=== PATIENT | female | born 1960 | race Caucasian/White ===

== ENCOUNTER → 2016-09-28 | Outpatient (CLI) | payer BC ==
--- NOTE | 2016-09-28 13:40 | REPMRS ---
Patient History The patient states she had a clinical breast exam in 09/07 Patient is postmenopausal. Family history of breast cancer in mother at age 55, breast cancer in maternal grandmother at age 65, and colorectal cancer in maternal cousin at age 50. Benign excisional biopsy of the right breast, 2003. Took hormonal contraceptives for 5 years. Digital Woman Screen Mammo: September 28, 2016 - Exam #: [id number] Bilateral CC and MLO view(s) were taken. Technologist: Wen Adhikari, Technologist Prior study comparison: August 22, 2015, digital woman screen mammo performed at [facility]. August 19, 2014, digital woman screen mammo performed at [facility]. FINDINGS: There are scattered fibroglandular densities. There has been no change in the appearance of the mammogram from the prior studies. There is a mild amount of residual fibroglandular tissue which is fairly symmetric. There is no interval development of dominant mass, architectural distortion, or clustered microcalcification suggestive of malignancy. ASSESSMENT: BI-RADS/ACR category 1 mammogram. Negative. Recommendation Routine screening mammogram in 1 year (for women over age 40). This mammogram was interpreted with the aid of an FDA-approved computer-aided dectection system. Electronically Signed By: Melquiades Grey MD 09/28/16 0019
== END ==
LOC: M WHC 12:51
PROVIDERS: ATTEND Nurse Practitioner Women's Health
DX: Z12.31 Encounter for screening mammogram for malignant neoplasm of breast (principal)

== ENCOUNTER → 2016-12-27 | Outpatient (REF) | payer BC ==
[2016-12-27 20:14] LABS: PERCENT SATURATION 26.6 % (13.2-37.4)
== END ==
LOC: M LAB REF 16:29
PROVIDERS: ATTEND Internal Medicine
DX: D64.9 Anemia, unspecified (principal)

== ENCOUNTER → 2017-08-05 | Outpatient (REF) | payer BC ==
[2017-08-05 15:52] LABS: CREATININE FOR GFR 0.67 MG/DL (0.55-1.02); GLOMERULAR FILTRATION RATE > 60.0 (>51)
[2017-08-05 15:52] LABS: BLOOD UREA NITROGEN 18 MG/DL (7-18)
== END ==
LOC: M LABDRAW1 15:23
DX: Z01.812 Encounter for preprocedural laboratory examination (principal)
CPT/HCPCS: 82565

== ENCOUNTER → 2017-10-14 | Outpatient (CLI) | payer BC | LOC: M WHC 09:02 | DX: Z12.31 Encounter for screening mammogram for malignant neoplasm of breast (principal); Z78.0 Asymptomatic menopausal state; Z80.3 Family history of malignant neoplasm of breast; Z80.0 Family history of malignant neoplasm of digestive organs; Z79.3 Long term (current) use of hormonal contraceptives | CPT/HCPCS: 77067 ==

== ENCOUNTER → 2018-03-06 | Outpatient (REF) | payer BC ==
[2018-03-06 18:52] LABS: FERRITIN 206 NG/ML (8-252); IRON (FE) 80 UG/DL (50-170); PERCENT SATURATION 27.3 % (13.2-45.0); TOTAL IRON BINDING CAPACITY 293 UG/DL (250-450)
[2018-03-06 18:57] LABS: VITAMIN B12 LEVEL 480 PG/ML (247-911)
== END ==
LOC: M LAB REF 17:43
DX: D64.9 Anemia, unspecified (principal)
CPT/HCPCS: 83550

== ENCOUNTER → 2018-10-15 | Outpatient (CLI) | payer BC ==
--- NOTE | 2018-10-15 11:34 | REPMRS ---
Patient History The patient states she had a clinical breast exam in 08/2018. Family history of breast cancer at age 65 in maternal grandmother, breast cancer at age 55 in mother, colorectal cancer at age 50 in maternal cousin. Benign excisional biopsy of the right breast, 2004. Took hormonal contraceptives for 5 years. 3D TOMOSYNTHESIS WAS PERFORMED. Digital Woman Screen Mammo: October 15, 2018 - Exam #: [id number] Bilateral CC and MLO view(s) were taken. Technologist: Wen Adhikari, Technologist Prior study comparison: October 14, 2017, digital woman screen mammo performed at [facility]. September 28, 2016, digital woman screen mammo performed at [facility]. FINDINGS: There are scattered fibroglandular densities. There has been no change in the appearance of the mammogram from the prior studies. There is a mild amount of residual fibroglandular tissue which is fairly symmetric. There is no interval development of dominant mass, architectural distortion, or clustered microcalcification suggestive of malignancy. Assessment: BI-RADS/ACR category 1 mammogram. Negative Mammogram. Recommendation Routine screening mammogram in 1 year (for women over age 40). This mammogram was interpreted with the aid of an FDA-approved computer-aided dectection system. Electronically Signed By: Melquiades Grey MD 10/15/18 [id number]
== END ==
LOC: M WHC 08:32
PROVIDERS: ATTEND Obstetrics & Gynecology
DX: Z12.31 Encounter for screening mammogram for malignant neoplasm of breast (principal); Z80.3 Family history of malignant neoplasm of breast; Z80.0 Family history of malignant neoplasm of digestive organs

== ENCOUNTER 2018-10-25 07:54 | Emergency (ER) | payer BC ==
[~2018-10-25] VITALS: Ht 157.5 cm; Wt 61.4 kg
[2018-10-25] MEDS ORDERED: TRAZ-163 (08:10)
[2018-10-25] MEDS ORDERED: BUPR150T3 (08:10)
[2018-10-25] MEDS ORDERED: LISI10TA4 (08:10)
--- NOTE | 2018-10-25 08:41 | REP ---
Clinical: Pain and swelling. Technique: AP, lateral, bilateral oblique views of the left hand. Findings: Advanced arthritic degenerative changes involving the first carpometacarpal joint space including chronic subluxation, surrounding chondrocalcinosis, subchondral sclerosis and joint space narrowing. Moderate osteoarthritic degenerative changes noted throughout the remainder of the hand with subchondral sclerosis and joint space narrowing at the interphalangeal joints and diffuse osteopenia. No acute fracture dislocation. Impression: Advanced osteoarthritic degenerative changes at the first carpometacarpal joint Moderate degenerative changes throughout the remainder of the left hand. Electronically Signed by Amarjit Miranda MD 10/25/2018 08:32 A
[2018-10-25] MEDS ORDERED: MOBI4TAB PO (09:11)
[2018-10-25 09:22] VITALS: BP 121/76
== END 2018-10-25 09:35 | disposition home or self-care (01) ==
LOC: M ED 07:54
DX: M19.042 Primary osteoarthritis, left hand (principal); I10 Essential (primary) hypertension; F32.9 Major depressive disorder, single episode, unspecified

== ENCOUNTER → 2019-04-29 | Outpatient (REF) | payer BC ==
[~2019-04-29] MED LIST: BUPR150T3; LISI10TA4; MOBI4TAB PO; TRAZ-163
[2019-04-29 13:04] LABS: BLOOD UREA NITROGEN 15 MG/DL (7-18); CREATININE FOR GFR 0.68 MG/DL (0.55-1.30); GLOMERULAR FILTRATION RATE > 60.0 (>45)
== END ==
LOC: M LABDRAW1 12:32
PROVIDERS: ATTEND Neurological Surgery
DX: N18.9 Chronic kidney disease, unspecified (principal)

== ENCOUNTER → 2019-12-28 | Outpatient (CLI) | payer BC ==
[~2019-12-28] MED LIST changes: -TRAZ-163; +TRAZ-257
--- NOTE | 2019-12-28 12:27 | REPMRS ---
Patient History The patient states she had a clinical breast exam in 2019. Family history of breast cancer at age 65 in maternal grandmother, breast cancer at age 55 in mother, colorectal cancer at age 50 in maternal cousin. Benign excisional biopsy of the right breast, 2004. Took hormonal contraceptives for 5 years. 3D TOMOSYNTHESIS WAS PERFORMED. The [facility] lifetime risk for breast cancer is 17.1%. VOLPARA DENSITY B. Digital Woman Screen Mammo: December 28, 2019 - Exam #: [id number] Bilateral CC and MLO view(s) were taken. Technologist: Dawn Baker, Technologist Prior study comparison: October 15, 2018, bilateral digital woman screen mammo performed at [facility]. October 14, 2017, digital woman screen mammo performed at [facility]. FINDINGS: There are scattered fibroglandular densities. There has been no change in the appearance of the mammogram from the prior studies. There is a mild amount of residual fibroglandular tissue which is fairly symmetric. There is no interval development of dominant mass, architectural distortion, or clustered microcalcification suggestive of malignancy. Assessment: BI-RADS/ACR category 1 mammogram. Negative Mammogram. Recommendation Routine screening mammogram in 1 year (for women over age 40). This mammogram was interpreted with the aid of an FDA-approved computer-aided dectection system. Electronically Signed By: Melquiades Grey MD 12/28/19 [id number]
== END ==
LOC: M WHC 10:56
PROVIDERS: ATTEND Nurse Practitioner Women's Health
DX: Z12.31 Encounter for screening mammogram for malignant neoplasm of breast (principal); Z80.3 Family history of malignant neoplasm of breast; Z80.0 Family history of malignant neoplasm of digestive organs

== ENCOUNTER → 2020-09-27 | Outpatient (CLI) | payer BC ==
[~2020-09-27] MED LIST changes: +BUPR150T12; -BUPR150T3; +LISI10TA22; -LISI10TA4
[2020-09-27 20:28] LABS: BLOOD UREA NITROGEN 15 MG/DL (7-18); CREATININE FOR GFR 0.78 MG/DL (0.55-1.30); GLOMERULAR FILTRATION RATE > 60.0 (>45)
== END ==
LOC: M WUC 15:32
PROVIDERS: ATTEND Registered Nurse
DX: D43.9 Neoplasm of uncertain behavior of central nervous system, unspecified (principal)

== ENCOUNTER → 2021-02-16 | Outpatient (CLI) | payer BC ==
--- NOTE | 2021-02-16 09:26 | REPMRS ---
Patient History The patient states she had a clinical breast exam in Mar 2020. Family history of breast cancer at age 65 in maternal grandmother, breast cancer at age 55 in mother, colorectal cancer at age 50 in maternal cousin. Benign excisional biopsy of the right breast, 2004. Took hormonal contraceptives for 5 years. Patient states no breast complaints today. Patient has signed MRS History Sheet. Digital Woman Screen Mammo: February 16, 2021 - Exam #: [id number] Bilateral CC and MLO view(s) were taken. Technologist: Wen Adhikari, Technologist Prior study comparison: December 28, 2019, bilateral digital woman screen mammo performed at [facility]. October 15, 2018, bilateral digital woman screen mammo performed at [facility]. FINDINGS: There are scattered fibroglandular densities. Screening. Digital screening (2D) mammography was performed bilaterally in the CC and MLO projections. Additionally, breast tomosynthesis (3D mammography) was performed bilaterally in the CC and MLO projections. Todays exam was compared to the prior exam/exams. By history, the patient has no complaints of a palpable breast abnormality or other significant breast complaints. The breasts are unchanged in size and shape. There are no michael-soft tissue densities or spiculated masses. There is no internal architectural distortion. There are no suspicious michael-calcific clusters. Skin thickening or nipple retraction is not present. IMPRESSION: BI-RADS Category 1-negative. There is no evidence of malignant alteration of the breasts. Followup examination recommended in one year. The Volpara volumetric breast density category is B, there are scattered areas of fibroglandular densities. This mammogram was read [facility],an FDA approved computer aided detection system for mammography. The lifetime Tyrer-Cuzick score is 16.6 % Negative x-ray reports should not delay surgical consultation if a dominant or clinically suspicious mass is present. Not all breast cancers can be identified by mammography. Therefore, we recommend that you continue to perform regular breast self-examination and physical examination and then promptly contact your physician of any concerns or changes. Adenosis and dense breasts may obscure an underlying neoplasm. Assessment: BI-RADS/ACR category 1 mammogram. Negative Mammogram. Recommendation Routine screening mammogram of both breasts in 1 year. Electronically Signed By: Reji Cano, 02/16/21 0961
== END ==
LOC: M WHC 08:22
PROVIDERS: ATTEND Obstetrics & Gynecology
DX: Z12.31 Encounter for screening mammogram for malignant neoplasm of breast (principal); Z85.3 Personal history of malignant neoplasm of breast; Z92.0 Personal history of contraception; Z98.890 Other specified postprocedural states

== ENCOUNTER → 2022-03-27 | Outpatient (CLI) | payer BC | LOC: M WHC 08:36 | PROVIDERS: ATTEND Obstetrics & Gynecology | DX: Z12.31 Encounter for screening mammogram for malignant neoplasm of breast (principal); Z80.3 Family history of malignant neoplasm of breast ==

== ENCOUNTER → 2022-04-10 | Outpatient (CLI) | payer BC | LOC: M WUC 11:38 | PROVIDERS: ATTEND Internal Medicine | DX: M50.322 Other cervical disc degeneration at C5-C6 level (principal) ==

== ENCOUNTER → 2022-11-12 | Outpatient (CLI) | payer BC ==
[~2022-11-12] MED LIST changes: +OXYC30TA PO; +TRAM50TA2 PO
[2022-11-12 17:44] LABS: C REACTIVE PROTEIN QUANTITATIV < 0.40 MG/DL (<1.0)
[2022-11-13 16:49] LABS: IRON (FE) 73 UG/DL (50-170); PERCENT SATURATION 24.8 % (13.2-45.0); TOTAL IRON BINDING CAPACITY 294 UG/DL (250-425)
[2022-11-13 16:52] LABS: FERRITIN 124.3 NG/ML (7.3-270.7); VITAMIN B12 LEVEL 1225 PG/ML (211-911)
== END ==
LOC: M WUC 15:39
PROVIDERS: ATTEND Internal Medicine
DX: S13.8XXA Sprain of joints and ligaments of other parts of neck, initial encounter (principal); X58.XXXA Exposure to other specified factors, initial encounter; Y92.89 Other specified places as the place of occurrence of the external cause; Y93.89 Activity, other specified; Y99.8 Other external cause status

== ENCOUNTER → 2022-11-22 | Outpatient (CLI) | payer BC ==
[~2022-11-22] MED LIST changes: +ISOVUE-370 76% 100ML VIAL As Ordered ONE
== END ==
LOC: M RAD 14:18
PROVIDERS: ATTEND Internal Medicine
DX: R59.0 Localized enlarged lymph nodes (principal)
CPT/HCPCS: 70491; Q9967

== ENCOUNTER → 2022-11-23 | Outpatient (CLI) | payer BC ==
[~2022-11-23] MED LIST changes: -ISOVUE-370 76% 100ML VIAL As Ordered ONE
== END ==
LOC: M WUC 09:24
PROVIDERS: ATTEND Internal Medicine
DX: M51.36 Other intervertebral disc degeneration, lumbar region (principal); M51.37 Other intervertebral disc degeneration, lumbosacral region; M54.50 Low back pain, unspecified; R53.83 Other fatigue

== ENCOUNTER → 2022-12-06 | Outpatient (CLI) | payer BC | LOC: M RAD 13:31 | PROVIDERS: ATTEND Internal Medicine | DX: N28.1 Cyst of kidney, acquired (principal); R10.823 Right lower quadrant rebound abdominal tenderness ==

== ENCOUNTER → 2022-12-12 | Outpatient (CLI) | payer BC | LOC: M RAD 11:10 | PROVIDERS: ATTEND Internal Medicine | DX: R10.2 Pelvic and perineal pain (principal) ==

== ENCOUNTER → 2023-04-04 | Outpatient (CLI) | payer BC | LOC: M WHC 13:24 | PROVIDERS: ATTEND Internal Medicine | DX: Z12.31 Encounter for screening mammogram for malignant neoplasm of breast (principal) ==

== ENCOUNTER → 2023-04-24 | Outpatient (CLI) | payer OTHER, BC | LOC: M PLAIMG 08:57 | PROVIDERS: ATTEND Internal Medicine | DX: S06.0X1A Concussion with loss of consciousness of 30 minutes or less, initial encounter (principal); R51.9 Headache, unspecified; V28.49XA Other motorcycle driver injured in noncollision transport accident in traffic accident, initial encounter; Y92.9 Unspecified place or not applicable; Y99.9 Unspecified external cause status; Y93.9 Activity, unspecified ==

== ENCOUNTER → 2023-05-31 | Outpatient (REF) | payer BC, OTHER ==
[2023-05-31 17:23] LABS: BASO # 0.1 10^3/uL (0.0-0.2); BASO % 0.8 % (0.0-1.0); EOS # 0.2 10^3/uL (0.0-0.5); EOS % 2.2 % (0.0-3.0); HEMOGLOBIN 12.6 g/dl (12.0-15.5); LYMPH # 2.4 10^3/uL (1.5-5.0); LYMPH % 33.3 % (24.0-44.0); MEAN CORPUSCULAR HEMOGLOBIN 28.9 pg (27.0-33.0); MEAN CORPUSCULAR HGB CONC 32.3 g/dl (32.0-36.5); MEAN CORPUSCULAR VOLUME 89.4 fl (80.0-96.0); MONO # 0.6 10^3/uL (0.0-0.8); MONO % 7.5 % (2.0-8.0); NEUTROPHILS # 4.1 10^3/uL (1.5-8.5); NEUTROPHILS % 56.1 % (36.0-66.0); PLATELET COUNT, AUTOMATED 326 10^3/uL (150-450); RED BLOOD COUNT 4.36 10^6/uL (4.00-5.40); WHITE BLOOD COUNT 7.3 10^3/uL (4.0-10.0)
[2023-05-31 17:37] LABS: ALBUMIN 4.1 G/DL (3.2-5.2); ALKALINE PHOSPHATASE 69 U/L (46-116); ALT/SGPT 19 U/L (7.0-40); AST/SGOT 12 U/L (<34); BILIRUBIN,TOTAL 0.2 MG/DL (0.3-1.2); BLOOD UREA NITROGEN 12 MG/DL (9-23); CALCIUM LEVEL 9.2 MG/DL (8.3-10.6); CARBON DIOXIDE LEVEL 28 MMOL/L (20-31); CHLORIDE LEVEL 103 MMOL/L (98-107); CHOLESTEROL LEVEL 215 MG/DL (<200); CHOLESTEROL RISK RATIO 2.88 (<5); CREATININE FOR GFR 0.75 MG/DL (0.55-1.30); GLOMERULAR FILTRATION RATE > 60.0 (>45); GLUCOSE, FASTING 89 MG/DL (74-106); HDL CHOLESTEROL 74.4 MG/DL (>40); LDL CHOLESTEROL 126.2 MG/DL (<100); NON-HDL-C 140.6 MG/DL; POTASSIUM SERUM 4.7 MMOL/L (3.5-5.1); SODIUM LEVEL 140 MMOL/L (136-145); THYROID STIMULATING HORMONE 2.625 uIU/ML (0.55-4.78); TOTAL PROTEIN 6.8 G/DL (5.7-8.2); TRIGLYCERIDES LEVEL 72 MG/DL (<150)
== END ==
LOC: M LAB REF 16:23
PROVIDERS: ATTEND Internal Medicine
DX: Z00.00 Encounter for general adult medical examination without abnormal findings (principal); E78.5 Hyperlipidemia, unspecified; I10 Essential (primary) hypertension; R59.0 Localized enlarged lymph nodes

== ENCOUNTER → 2023-07-01 | Outpatient (REF) | payer BC, OTHER | LOC: M SFHCWAGY 14:09 | PROVIDERS: ATTEND Nurse Practitioner Family | DX: Z12.4 Encounter for screening for malignant neoplasm of cervix (principal); R87.615 Unsatisfactory cytologic smear of cervix ==

== ENCOUNTER → 2023-07-29 | Outpatient (REF) | payer BC, OTHER | LOC: M SFHCWAGY 15:28 | PROVIDERS: ATTEND Nurse Practitioner Family | DX: Z12.4 Encounter for screening for malignant neoplasm of cervix (principal); N95.2 Postmenopausal atrophic vaginitis ==

== ENCOUNTER 2023-11-07 08:12 | Emergency (ER) | payer BC, OTHER ==
[~2023-11-07] VITALS: Ht 157.5 cm; Wt 80.4 kg
[~2023-11-07 08:12] MED LIST changes: -LISI10TA22; +LISI10TA22 PO
[2023-11-07] MEDS ORDERED: BUPR15TA PO (08:20)
[2023-11-07] MEDS ORDERED: CHOL1CAP10 PO (08:20)
[2023-11-07] MEDS ORDERED: TRAZ-257 PO (08:20)
[2023-11-07] MEDS ORDERED: ECOT81TA5 PO (08:20)
[2023-11-07] MEDS ORDERED: CALC500C16 PO (08:20)
[2023-11-07 10:21] LABS: BASO # 0.1 10^3/uL (0.0-0.2); BASO % 0.9 % (0.0-1.0); EOS # 0.2 10^3/uL (0.0-0.5); EOS % 2.3 % (0.0-3.0); HEMOGLOBIN 12.3 g/dl (12.0-15.5); LYMPH # 1.9 10^3/uL (1.5-5.0); MEAN CORPUSCULAR HGB CONC 33.2 g/dl (32.0-36.5); MEAN CORPUSCULAR VOLUME 87.3 fl (80.0-96.0); MONO # 0.7 10^3/uL (0.0-0.8); MONO % 8.4 % (2.0-8.0); NEUTROPHILS # 4.9 10^3/uL (1.5-8.5); NEUTROPHILS % 63.1 % (36.0-66.0); PLATELET COUNT, AUTOMATED 298 10^3/uL (150-450); RED BLOOD COUNT 4.24 10^6/uL (4.00-5.40); WHITE BLOOD COUNT 7.8 10^3/uL (4.0-10.0)
[2023-11-07 10:50] LABS: LIPASE 46 U/L (12-53)
[2023-11-07 10:52] LABS: ALBUMIN 3.4 G/DL (3.2-5.2); ALKALINE PHOSPHATASE 62 U/L (46-116); ALT/SGPT 21 U/L (7.0-40); AST/SGOT 24 U/L (<34); BILIRUBIN,TOTAL 0.3 MG/DL (0.3-1.2); BLOOD UREA NITROGEN 12 MG/DL (9-23); CARBON DIOXIDE LEVEL 26 MMOL/L (20-31); CHLORIDE LEVEL 108 MMOL/L (98-107); GLOMERULAR FILTRATION RATE > 60.0 (>45); GLUCOSE, FASTING 101 MG/DL (74-106); POTASSIUM SERUM 4.7 MMOL/L (3.5-5.1); SODIUM LEVEL 141 MMOL/L (136-145); TOTAL PROTEIN 6.5 G/DL (5.7-8.2)
[2023-11-07] MEDS ORDERED: ISOVUE-370 76% 100ML VIAL As Ordered ONE (11:25)
[2023-11-07 11:31] VITALS: BP 142/90; TEMP 97.9; O2SAT 98
[2023-11-07] MEDS: KETOROLAC 30 MG/ML 1ML VIAL IV ONE (11:58)
[2023-11-07] MEDS: methocarbamoL 500 MG TAB PO ONE (11:58)
[2023-11-07] MEDS ORDERED: EPIP0.3I2 IM (12:30)
[2023-11-07] MEDS ORDERED: ADVI200C8 PO (12:30)
[2023-11-07] MEDS ORDERED: CALC500T68 PO (12:30)
[2023-11-07] MEDS ORDERED: HOME MED LIST COMPLETE! XX SCH (12:30)
[2023-11-07] MEDS ORDERED: D 1010004 PO (12:30)
[2023-11-07] MEDS ORDERED: METH-1164 PO (12:33)
[2023-11-07] MEDS ORDERED: NAPR-837 PO (12:33)
== END 2023-11-07 12:47 | disposition home or self-care (01) ==
LOC: M ED 08:12
DX: R10.9 Unspecified abdominal pain (principal); N28.1 Cyst of kidney, acquired; R93.2 Abnormal findings on diagnostic imaging of liver and biliary tract; I10 Essential (primary) hypertension; Z79.899 Other long term (current) drug therapy
CPT/HCPCS: 36415; 74177; 80053; 81001; 83690; 85025; 96374; 99284; J1885; Q9967

== ENCOUNTER → 2023-11-22 | Outpatient (CLI) | payer OTHER ==
[~2023-11-22] MED LIST changes: +ADVI200C8 PO; +BUPR15TA PO; +CALC500C16 PO; +CALC500T68 PO; +CHOL1CAP10 PO; +D 1010004 PO; +ECOT81TA5 PO; +EPIP0.3I2 IM; +METH-1164 PO; +NAPR-837 PO; +TRAZ-257 PO
== END ==
LOC: M PLARAD 10:56
PROVIDERS: ATTEND Internal Medicine
DX: M50.10 Cervical disc disorder with radiculopathy, unspecified cervical region (principal); M50.30 Other cervical disc degeneration, unspecified cervical region; M48.02 Spinal stenosis, cervical region; M99.71 Connective tissue and disc stenosis of intervertebral foramina of cervical region

== ENCOUNTER → 2023-12-10 | Outpatient (REF) | payer BC ==
[2023-12-10 20:41] LABS: PLATELET COUNT, AUTOMATED 286 10^3/uL (150-450)
[2023-12-10 21:17] LABS: INR 0.96; PROTHROMBIN TIME 12.5 SECONDS (12.5-14.5)
== END ==
LOC: M LAB REF 20:22
PROVIDERS: ATTEND Physician Assistant
DX: Z01.818 Encounter for other preprocedural examination (principal)

== ENCOUNTER → 2023-12-17 | Outpatient (REF) | payer BC ==
[2023-12-17 16:35] LABS: INR 0.99; PARTIAL THROMBOPLASTIN TIME 26.1 SECONDS (24.8-34.2); PROTHROMBIN TIME 12.8 SECONDS (12.5-14.5)
== END ==
LOC: M LABWUC 16:13
PROVIDERS: ATTEND Physician Assistant
DX: Z01.812 Encounter for preprocedural laboratory examination (principal)

== ENCOUNTER → 2023-12-20 | Outpatient (REF) | payer BC, OTHER ==
[2023-12-23 18:08] LABS: ANGIOTENSIN 1 CONVERTING ENZYM 19 U/L (14-82); CYCLIC CITRULLINATED PEPTIDE 10 units (0-19)
== END ==
LOC: M LAB REF 17:05
PROVIDERS: ATTEND Internal Medicine
DX: M25.50 Pain in unspecified joint (principal)

== ENCOUNTER → 2024-06-03 | Outpatient (REF) | payer BC, MEDICARE ==
[2024-06-03 14:22] LABS: HEMATOCRIT 39.1 % (36.0-47.0); HEMOGLOBIN 12.7 g/dl (12.0-15.5); MEAN CORPUSCULAR HGB CONC 32.5 g/dl (32.0-36.5); MEAN CORPUSCULAR VOLUME 89.3 fl (80.0-96.0); PLATELET COUNT, AUTOMATED 311 10^3/uL (150-450); RED BLOOD COUNT 4.38 10^6/uL (4.00-5.40); WHITE BLOOD COUNT 6.4 10^3/uL (4.0-10.0)
[2024-06-03 14:24] LABS: ALBUMIN 3.7 G/DL (3.2-5.2); ALKALINE PHOSPHATASE 61 U/L (35-104); ALT/SGPT 23 U/L (7.0-40); AST/SGOT 11 U/L (<34); BILIRUBIN,TOTAL 0.3 MG/DL (0.3-1.2); BLOOD UREA NITROGEN 15 MG/DL (9-23); CALCIUM LEVEL 9.4 MG/DL (8.3-10.6); CARBON DIOXIDE LEVEL 28 MMOL/L (20-31); CHLORIDE LEVEL 110 MMOL/L (98-107); CHOLESTEROL LEVEL 225 MG/DL (<200); CREATININE FOR GFR 0.68 MG/DL (0.55-1.30); GLOMERULAR FILTRATION RATE > 60.0 (>45); GLUCOSE, FASTING 77 MG/DL (74-106); HDL CHOLESTEROL 70.3 MG/DL (>40); LDL CHOLESTEROL 135.5 MG/DL (<100); NON-HDL-C 154.7 MG/DL; POTASSIUM SERUM 4.6 MMOL/L (3.5-5.1); SODIUM LEVEL 142 MMOL/L (136-145); TOTAL PROTEIN 6.8 G/DL (5.7-8.2); TRIGLYCERIDES LEVEL 96 MG/DL (<150)
== END ==
LOC: M LAB REF 13:22
PROVIDERS: ATTEND Internal Medicine
DX: M79.7 Fibromyalgia (principal); E66.09 Other obesity due to excess calories; M25.50 Pain in unspecified joint

== ENCOUNTER → 2024-11-18 | Outpatient (CLI) | payer MEDICARE | LOC: M WHC 09:20 | PROVIDERS: ATTEND Nurse Practitioner Family | DX: Z12.31 Encounter for screening mammogram for malignant neoplasm of breast (principal); R92.313 Mammographic fatty tissue density, bilateral breasts ==

== ENCOUNTER → 2025-04-14 | Outpatient (REF) | payer MEDICARE ==
[2025-04-16 14:37] LABS: HPV APTIMA Not Detected (Not Detected)
== END ==
LOC: M SFHCWAGY 15:20
PROVIDERS: ATTEND Nurse Practitioner Family
DX: Z12.4 Encounter for screening for malignant neoplasm of cervix (principal)
CPT/HCPCS: 87624; G0123

== ENCOUNTER → 2025-06-07 | Outpatient (REF) | payer MEDICARE ==
[2025-06-07 18:19] LABS: IRON (FE) 96.0 UG/DL (50-170); PERCENT SATURATION 38.2 % (13.2-45.0)
== END ==
LOC: M LAB REF 14:23
PROVIDERS: ATTEND Internal Medicine
DX: D64.9 Anemia, unspecified (principal)